=== PATIENT | female | born 1995 | race Caucasian/White ===

== ENCOUNTER 2019-03-22 07:56 | Emergency (ER) | payer SELFPAY ==
[~2019-03-22] VITALS: Ht 162.6 cm; Wt 93.9 kg
[2019-03-22 07:59] VITALS: BP 159/89; PULSE 108; RESP 16; Ht 162.6 cm; Wt 93.9 kg
[2019-03-22] MEDS ORDERED: AMOX1TAB10 PO (08:17)
--- NOTE | 2019-03-22 08:26 | ERD ---
ER Documentation Chief Complaint Chief Complaint dog bite on lt eyelid HPI Patient is a 24-year-old female presents the ER for concerns of a dog bite to her left eyelid which occurred 20 minutes prior to arrival. Patient states she is playing with her friends dog when it bit her. Patient's friend states that the dog is vaccinated however patient is not sure. Patient denies any blurry vision or visual changes. Patient does not recall her last tetanus shot. ROS All systems reviewed and are negative except as per history of present illness. Medications Home Meds Active Scripts Amoxicillin/Potassium Clav (Amox-Clav 875-125 mg Tablet) 875-125 mg Tab, 1 TAB PO BID for 7 Days, #14 TAB Prov:KAYLENEJOSEMANUEL PA-C 03/22/19 FmHx Family History: No diabetes Physical Exam Vitals Vital Signs Date Temp Pulse Resp B/P (MAP) Pulse Ox O2 O2 Flow FiO2 Time Delivery Rate 03/22/19 100.1 108 16 159/89 99 07:59 (112) Physical Exam GENERAL: Well-developed, well-nourished female. Appears in no acute distress. HEAD: Normocephalic, atraumatic. EYES: 1 cm superficial laceration noted to the patient's left upper eyelid. No active bleeding. Pupils are equally reactive bilaterally. EOMs grossly intact. No conjunctival erythema. No pain with EOMs. No proptosis. ENT: Moist mucous membranes. No uvula deviation. No kissing tonsils. EXTREMITIES: Equal pulses bilaterally. No peripheral clubbing, cyanosis or edema. No unilateral leg swelling. NEUROLOGIC: Alert and oriented. Moving all four extremities without any difficulty. Normal speech. Steady gait. Results 24 hrs Current Medications Medications Dose Sig/Neema Start Time Status Last (Trade) Ordered Route PRN Stop Time Admin Dose Reason Admin Diphtheria/ 0.5 ml ONCE ONCE 03/22/19 Tetanus/Acell IM* 08:30 03/22/19 Pertussis 08:31 (Adacel) Procedures/MDM MEDICAL DECISION MAKING: This is a 24-year-old female presents the ER for concerns of a dog bite to her left upper eyelid. Vital signs reviewed. Patient was afebrile. Patient was not hypoxic. Patient states that her friend did state that the dog was vaccinated. Patient was given her tetanus shot here. 1 cm superficial laceration noted to the left upper eyelid. No active bleeding.Patient's EOMs are intact and patient had no pain with EOMs. Low suspicion for any orbital entrapment. Wound care was performed. Patient will be discharged home with Augmentin. She will visit and strict wound precautions advised return to the ER for any worsening redness, swelling, pain, fevers or chills. Low suspicion for any retained foreign bodies. PRESCRIPTIONS: Augmentin DISCHARGE: At this time, patient is stable for discharge and outpatient management. I have instructed the patient to follow-up with his/her primary care physician in 1-2 days. I have instructed the patient to promptly return to the ER at any time for any new or worsening symptoms including increased pain, nausea, vomiting, diarrhea, fever, weakness or LOC. The patient and/or family expressed understanding of and agreement with this plan. All questions were answered. Home care instructions were provided. Disclaimer: Inadvertent spelling and grammatical errors are likely due to EHR/dictation software use and do not reflect on the overall quality of patient care. Also, please note that the electronic time recorded on this note does not necessarily reflect the actual time of the patient encounter. Departure Diagnosis: Primary Impression: Dog bite Encounter type: initial encounter Qualified Codes: W54.0XXA - Bitten by dog, initial encounter Condition: Fair Patient Instructions: Dog Bite Referrals: [facility] YOU HAVE RECEIVED A MEDICAL SCREENING EXAM AND THE RESULTS INDICATE THAT YOU DO NOT HAVE A CONDITION THAT REQUIRES URGENT TREATMENT IN THE EMERGENCY DEPARTMENT. FURTHER EVALUATION AND TREATMENT OF YOUR CONDITION CAN WAIT UNTIL YOU ARE SEEN IN YOUR DOCTORS OFFICE WITHIN THE NEXT 1-2 DAYS. IT IS YOUR RESPONSIBILITY TO MAKE AN APPOINTMENT FOR FOLOW-UP CARE. IF YOU HAVE A PRIMARY DOCTOR --you should call your primary doctor and schedule an appointment IF YOU DO NOT HAVE A PRIMARY DOCTOR YOU CAN CALL OUR PHYSICIAN REFERRAL HOTLINE AT IF YOU CAN NOT AFFORD TO SEE A PHYSICIAN YOU CAN CHOSE FROM THE FOLLOWING [facility] [address] [facility] [address] [facility]. [facility] [address] [facility] [address] [facility] [address] [facility]. [facility] [address] [facility]. [facility] YOU HAVE RECEIVED A MEDICAL SCREENING EXAM AND THE RESULTS INDICATE THAT YOU DO NOT HAVE A CONDITION THAT REQUIRES URGENT TREATMENT IN THE EMERGENCY DEPARTMENT. FURTHER EVALUATION AND TREATMENT OF YOUR CONDITION CAN WAIT UNTIL YOU ARE SEEN IN YOUR DOCTORS OFFICE WITHIN THE NEXT 1-2 DAYS. IT IS YOUR RESPONSIBILITY TO MAKE AN APPOINTMENT FOR FOLOW-UP CARE. IF YOU HAVE A PRIMARY DOCTOR --you should call your primary doctor and schedule and appointment IF YOU DO NOT HAVE A PRIMARY DOCTOR YOU CAN CALL OUR PHYSICIAN REFERRAL HOTLINE AT . IF YOU CAN NOT AFFORD TO SEE A PHYSICIAN YOU CAN CHOSE FROM THE FOLLOWING [facility] INSTITUTIONS: [facility] [address] [place] [address] [facility] [address] [place] [address] [facility] [address] [place] [address] Additional Instructions: Call your primary care doctor TOMORROW for an appointment during the next 1-2 days.See the doctor sooner or return here if your condition worsens before your appointment time. JOSEMANUEL MAURICE PA-C Mar 22, 2019 08:26
[2019-03-22] MEDS ORDERED: DIPHTH/TET/ACEL PERTUSS (ADULT) 0.5 ML VIAL IM* ONE (08:30)
== END 2019-03-22 08:31 | disposition home or self-care (01) ==
LOC: FTE 07:56
DX: S01.152A Open bite of left eyelid and periocular area, initial encounter (principal); W54.0XXA Bitten by dog, initial encounter; Y92.9 Unspecified place or not applicable; Z23 Encounter for immunization
CPT/HCPCS: 90471; 90715